=== PATIENT | female | born 1965 | race Caucasian/White ===

== ENCOUNTER 2020-10-15 12:01 | Emergency (ER) | payer BC ==
[2020-10-15] MEDS ORDERED: BABY ASPIRIN 81 MG CHEW PO ONE (12:09)
--- NOTE | 2020-10-15 12:09 | ERPHSYRPT ---
- History of Present Illness Time Seen by Provider: 10/15/20 12:08 Historian: patient Exam Limitations: no limitations Physician History: This is a 55-year-old diabetic patient who has a history of coronary disease, 2 myocardial infarction's in the past, elevated cholesterol and continues to currently smoke cigarettes and presents with onset of chest pain that is central in location described as a dull ache with radiation to her back and bilateral shoulders. Patient states that she is under a lot of stress over the last several weeks. Patient was in her car in the parking lot waiting to be seen at the [facility] because of bilateral earaches. It is while she was waiting in the car that she developed the chest pain. This occurred just prior to evaluation in the emergency department. In the last week she had noticed an intermittent bleeding from both ear canals. She has had history of recurrent bilateral otitis media in the past. 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 Timing/Duration: today Activities at Onset: emotional stress (Patient is under a lot of stress at this time), rest Quality: aching, dullness Location: substernal, central Chest Pain Radiation: arm (Bilateral shoulders), back Severity of Pain-Max: mild Severity of Pain-Current: mild Modifying Factors: Improves With: nothing Prior Chest Pain/Cardiac Workup: heart attack Nitro Today/Relief: no nitro taken today Aspirin Treatment Today: 81 mg x 1, provided at home Allergies/Adverse Reactions: Penicillins Allergy (Verified 10/15/20 12:11) Home Medications: Hydrochlorothiazide 25 mg PO DAILY 01/15/15 [History] Metoprolol Succinate 50 mg [Toprol Xl 50 MG] 50 mg PO DAILY 01/15/15 [History] Lisinopril 10 mg [Zestril 10 MG] 10 mg PO DAILY 10/15/20 [History] Metformin HCl 500 mg [Glucophage 500 MG] 500 mg PO BIDWM 10/15/20 [History] Paroxetine HCl 10 mg PO DAILY 10/15/20 [History] Rosuvastatin Calcium 20 mg PO DAILY 10/15/20 [History] Hx Tetanus, Diphtheria Vaccination/Date Given: (unknown) Hx Influenza Vaccination/Date Given: No Travel Risk - International Travel Have you traveled outside of the country in past 3 weeks: No - Coronavirus Screening Are you exhibiting any of the following symptoms?: No Close contact with a COVID-19 positive Pt in past 14-21 Days: No - Review of Systems Constitutional: No Symptoms Eyes: No Symptoms Ears, Nose, & Throat: Ear Pain (Bilateral), Ear Discharge (Lateral) Respiratory: No Symptoms Cardiac: Chest Pain Abdominal/Gastrointestinal: No Symptoms Genitourinary Symptoms: No Symptoms Musculoskeletal: No Symptoms Skin: No Symptoms Neurological: No Symptoms, Sensory Changes Psychological: No Symptoms Endocrine: No Symptoms Hematologic/Lymphatic: No Symptoms Immunological/Allergic: No Symptoms All Other Systems: Reviewed and Negative - Past Medical History Pertinent Past Medical History: Yes Cardiac History: High Cholesterol, Hypertension - Past Surgical History Past Surgical History: Yes Female Surgical History: Hysterectomy, Tubal Ligation Other Surgical History: tonsils, ablasion - Social History Smoking Status: Current every day smoker Exposure to second hand smoke: Yes Drug Use: none Patient Lives Alone: No - Nursing Vital Signs Nursing Vital Signs: Initial Vital Signs Pulse Rate 65 10/15/20 12:02 Pain Scale Pain Intensity 4 - Physical Exam General Appearance: no apparent distress, alert, anxiety Eye Exam: PERRL/EOMI, eyes nml inspection Ears, Nose, Throat Exam: moist mucous membranes, other (Bilateral ear canals are red as are the bilateral tympanic membranes. No evidence of bilateral tympanic membrane perforation.) Neck Exam: normal inspection, non-tender, supple, full range of motion Respiratory Exam: normal breath sounds, chest tenderness, lungs clear, airway intact, No respiratory distress Cardiovascular Exam: regular rate/rhythm, normal heart sounds, normal peripheral pulses Gastrointestinal/Abdomen Exam: soft, normal bowel sounds, No tenderness Pelvic Exam: not done Rectal Exam: not done Back Exam: normal inspection, normal range of motion, No CVA tenderness, No vertebral tenderness Extremity Exam: normal inspection, normal range of motion, pelvis stable Neurologic Exam: alert, oriented x 3, cooperative, 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 There is no comparison EKG available.) Ordered Tests: Active Orders 24 hr Category Date Time Status EKG-ER Only STAT Care 10/15/20 12:09 Active IV Insertion STAT Care 10/15/20 12:09 Active CHEST 1 VIEW (PORTABLE) Stat Exams 10/15/20 12:09 Taken CBC W DIFF Stat Lab 10/15/20 12:21 Completed CMP Stat Lab 10/15/20 12:21 Completed D-DIMER QUANTITATIVE Stat Lab 10/15/20 12:21 Completed NT PRO BNP Stat Lab 10/15/20 12:21 Completed PROTIME WITH INR Stat Lab 10/15/20 12:21 Completed TROPONIN Q3H Lab 10/15/20 12:21 Completed TROPONIN Q3H Lab 10/15/20 15:22 Completed TROPONIN Q3H Lab 10/15/20 18:15 Ordered TROPONIN Q3H Lab 10/15/20 21:15 Ordered TROPONIN Q3H Lab 10/16/20 00:15 Ordered Medication Summary Discontinued Medications Generic Name Dose Route Start Last Admin Trade Name Lamonteq PRN Reason Stop Dose Admin Aspirin 324 mg 10/15/20 12:09 10/15/20 12:25 Baby Aspirin 81 Mg Chew PO 10/15/20 12:10 243 mg STAT ONE Administration Ceftriaxone Sodium/Dextrose 1 g in 50 mls @ 100 mls/hr 10/15/20 12:29 10/15/20 13:40 Rocephin 1 Gm-D5w 50 Ml Bag IV 10/15/20 12:58 Infused STAT STA Infusion Ceftriaxone Sodium/Dextrose Confirm 10/15/20 12:35 Rocephin 1 Gm-D5w 50 Ml Bag Administered 10/15/20 12:36 Dose 1 g in 50 mls @ ud IV .STK-MED ONE Morphine Sulfate 2 mg 10/15/20 12:29 10/15/20 12:37 Morphine Sulfate 2 Mg Inj IV 10/15/20 12:30 2 mg STAT ONE Administration Morphine Sulfate Confirm 10/15/20 12:35 Morphine Sulfate 2 Mg Inj Administered 10/15/20 12:36 Dose 2 mg .ROUTE .STK-MED ONE Ondansetron HCl 4 mg 10/15/20 12:29 10/15/20 12:37 Zofran 4 Mg/2 Ml Vial IV 10/15/20 12:30 4 mg STAT ONE Administration Ondansetron HCl Confirm 10/15/20 12:34 Zofran 4 Mg/2 Ml Vial Administered 10/15/20 12:35 Dose 4 mg .ROUTE .STK-MED ONE Lab/Rad Data: Laboratory Result Diagrams 10/15/20 12:21 10/15/20 12:21 Laboratory Results 10/15/20 10/15/20 10/15/20 Range/Units 15:22 12:21 12:21 WBC (4.0-10.5) K/mm3 RBC (4.1-5.4) M/mm3 Hgb (12.0-16.0) gm/dl Hct (35-47) % MCV (78-100) fl MCH (26-32) pg MCHC (32-36) g/dl RDW (11.5-14.0) % Plt Count (150-450) K/mm3 MPV (7.5-11.0) fl Gran % (36.0-66.0) % Eos # (Auto) (0-0.5) Absolute Lymphs (auto) (1.0-4.6) Absolute Monos (auto) (0.0-1.3) Lymphocytes % (24.0-44.0) % Monocytes % (0.0-12.0) % Eosinophils % (0.00-5.0) % Basophils % (0.0-0.4) % Absolute Granulocytes (1.4-6.9) Basophils # (0-0.4) PT 12.1 (9.95-12.35) SECONDS INR 1.07 (0.8-3.0) D-Dimer 452 (215-500) ng/mL Sodium (137-145) mmol/L Potassium (3.5-5.1) mmol/L Chloride (98-107) mmol/L Carbon Dioxide (22-30) mmol/L Anion Gap (5-15) MEQ/L BUN (7-17) mg/dL Creatinine (0.52-1.04) mg/dL Estimated GFR ML/MIN Glucose (74-106) mg/dL Calcium (8.4-10.2) mg/dL Total Bilirubin (0.2-1.3) mg/dL AST (14-36) U/L ALT (0-35) U/L Alkaline Phosphatase (38-126) U/L Troponin I < 0.012 < 0.012 (0.000-0.034) ng/mL NT-Pro-B Natriuret Pep (0-900) pg/mL Serum Total Protein (6.3-8.2) g/dL Albumin (3.5-5.0) g/dL 10/15/20 10/15/20 Range/Units 12:21 12:21 WBC 10.8 H (4.0-10.5) K/mm3 RBC 5.06 (4.1-5.4) M/mm3 Hgb 15.1 (12.0-16.0) gm/dl Hct 46.3 (35-47) % MCV 91.5 (78-100) fl MCH 29.8 (26-32) pg MCHC 32.6 (32-36) g/dl RDW 13.6 (11.5-14.0) % Plt Count 263 (150-450) K/mm3 MPV 11.6 H (7.5-11.0) fl Gran % 44.0 (36.0-66.0) % Eos # (Auto) 0.18 (0-0.5) Absolute Lymphs (auto) 4.86 H (1.0-4.6) Absolute Monos (auto) 1.01 (0.0-1.3) Lymphocytes % 44.9 H (24.0-44.0) % Monocytes % 9.3 (0.0-12.0) % Eosinophils % 1.7 (0.00-5.0) % Basophils % 0.1 (0.0-0.4) % Absolute Granulocytes 4.76 (1.4-6.9) Basophils # 0.01 (0-0.4) PT (9.95-12.35) SECONDS INR (0.8-3.0) D-Dimer (215-500) ng/mL Sodium 138 (137-145) mmol/L Potassium 3.6 (3.5-5.1) mmol/L Chloride 102 (98-107) mmol/L Carbon Dioxide 26 (22-30) mmol/L Anion Gap 14.4 (5-15) MEQ/L BUN 11 (7-17) mg/dL Creatinine 0.79 (0.52-1.04) mg/dL Estimated GFR > 60.0 ML/MIN Glucose 83 (74-106) mg/dL Calcium 10.0 (8.4-10.2) mg/dL Total Bilirubin 0.30 (0.2-1.3) mg/dL AST 31 (14-36) U/L ALT 32 (0-35) U/L Alkaline Phosphatase 82 (38-126) U/L Troponin I (0.000-0.034) ng/mL NT-Pro-B Natriuret Pep 179 (0-900) pg/mL Serum Total Protein 8.0 (6.3-8.2) g/dL Albumin 4.7 (3.5-5.0) g/dL - Progress Progress: improved, re-examined Air Movement: good Progress Note: 10/15/20 12:58 Chest x-ray shows no acute cardiopulmonary process Blood Culture(s) Obtained: No Antibiotics given: Yes Counseled pt/family regarding: lab results, diagnosis, need for follow-up, rad results - Departure Departure Disposition: Home Clinical Impression: Bilateral otitis media, Chest pain Condition: Stable Critical Care Time: No Referrals: DELORES CAMPO [Primary Care Provider] - Additional Instructions: Drink plenty of fluids. Take your medication as prescribed. Follow-up with your primary care physician for persistent symptoms. Prescriptions: Azithromycin 250 mg [Zithromax 250 MG TABLET] 250 mg PO ZPACK #6 tablet
[2020-10-15 12:22] LABS: Absolute Neutrophil Ct (ANC) 4.76 (1.4-6.9); BASOPHIL % 0.1 % (0.0-0.4); Basophil (Absolute #) 0.01 (0-0.4); Eosinophil % 1.7 % (0.00-5.0); Eosinophil (Absolute #) 0.18 (0-0.5); Hematocrit 46.3 % (35-47); Hemoglobin 15.1 gm/dl (12.0-16.0); Lymphocyte (Absolute #) 4.86 (1.0-4.6); Lymphocytes % 44.9 % (24.0-44.0); Mean Cell Volume 91.5 fl (78-100); Mean Corpuscular Hemoglobin 29.8 pg (26-32); Mean Corpuscular Hgb Concent. 32.6 g/dl (32-36); Mean Platelet Volume 11.6 fl (7.5-11.0); Monocyte (Absolute #) 1.01 (0.0-1.3); Monocytes % 9.3 % (0.0-12.0); Platelet Count 263 K/mm3 (150-450); Red Blood Count 5.06 M/mm3 (4.1-5.4); Red Cell Distribution Width 13.6 % (11.5-14.0); White Blood Count 10.8 K/mm3 (4.0-10.5)
[2020-10-15 12:28] LABS: INR 1.07 (0.8-3.0); PROTIME 12.1 SECONDS (9.95-12.35)
[2020-10-15] MEDS ORDERED: Zofran 4 MG/2 ML VIAL IV ONE (12:29)
[2020-10-15] MEDS ORDERED: MORPHINE SULFATE 2 MG INJ IV ONE (12:29)
[2020-10-15] MEDS ORDERED: ROCEPHIN 1 Gm-D5w 50 ml Bag** 1 G/50 ML IVPB IV STA (12:29)
[2020-10-15] MEDS ORDERED: Zofran 4 MG/2 ML VIAL ONE (12:34)
[2020-10-15] MEDS ORDERED: ROCEPHIN 1 Gm-D5w 50 ml Bag** 1 G/50 ML IVPB IV ONE (12:35)
[2020-10-15] MEDS ORDERED: MORPHINE SULFATE 2 MG INJ ONE (12:35)
[2020-10-15 12:42] LABS: ALBUMIN 4.7 g/dL (3.5-5.0); ALKALINE PHOSPHATASE 82 U/L (38-126); ANION GAP 14.4 MEQ/L (5-15); BLOOD UREA NITROGEN 11 mg/dL (7-17); CHLORIDE 102 mmol/L (98-107); Carbon Dioxide 26 mmol/L (22-30); Creatinine 1 0.79 mg/dL (0.52-1.04); EST GLOMERULAR FILTRATION RATE > 60.0 ML/MIN; Glucose 83 mg/dL (74-106); NT PRO BNP 179 pg/mL (0-900); Potassium 3.6 mmol/L (3.5-5.1); SGOT/AST 31 U/L (14-36); SGPT/ALT 32 U/L (0-35); SODIUM 138 mmol/L (137-145)
[2020-10-15 16:08] VITALS: BP 123/72; PULSE 52; O2SAT 95
--- NOTE | 2020-10-15 18:30 | XRAY ---
Indication: Chest pain. Comparison: None Portable apical lordotic chest demonstrates normal heart and lungs. Bony thorax intact.
== END 2020-10-15 16:12 | disposition home or self-care (01) ==
LOC: ED 12:01
DX: H66.93 Otitis media, unspecified, bilateral (principal); R07.89 Other chest pain; I10 Essential (primary) hypertension; E78.00 Pure hypercholesterolemia, unspecified; Z79.899 Other long term (current) drug therapy
CPT/HCPCS: 36000; 36415; 71045; 80053; 83880; 84484; 85025; 85379; 85610; 93005; 96365; 96374; 96375; 99285; J0696; J2270; J2405; A9270-GY

== ENCOUNTER 2021-01-17 09:43 | Emergency (ER) | payer BC ==
[2021-01-17 09:56] VITALS: BP 153/75; PULSE 60; O2SAT 100
[2021-01-17] MEDS ORDERED: TORAdol 30 mg Injection IM ONE (10:03)
[2021-01-17] MEDS ORDERED: TORAdol 30 mg Injection ONE (10:15)
--- NOTE | 2021-01-17 10:35 | XRAY ---
Indication: Pain after hugging. Comparison: October 15, 2020. Portable chest again demonstrates normal heart, lungs, bony thorax.
--- NOTE | 2021-01-17 10:38 | XRAY ---
Indication: Pain after hugging. Comparison: None 2 view left ribs obtained. No bony, articular, or soft tissue abnormalities.
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
== END 2021-01-17 11:14 | disposition home or self-care (01) ==
LOC: ED 09:43
DX: R07.81 Pleurodynia (principal); X50.0XXA Overexertion from strenuous movement or load, initial encounter; X50.9XXA Other and unspecified overexertion or strenuous movements or postures, initial encounter; Y92.89 Other specified places as the place of occurrence of the external cause; Y99.9 Unspecified external cause status
CPT/HCPCS: 71045; 71100; 96372; 99284; J1885

== ENCOUNTER 2023-03-24 09:55 | Observation (INO) | payer BC ==
[2023-03-24] MEDS ORDERED: MORPHINE SULFATE 4 MG INJ IV ONE ×2 (10:16→13:03)
[2023-03-24] MEDS ORDERED: Zofran 4 MG/2 ML VIAL IV ONE (10:16)
[2023-03-24] MEDS ORDERED: Zofran 4 MG/2 ML VIAL ONE (10:24)
[2023-03-24] MEDS ORDERED: MORPHINE SULFATE 4 MG INJ ONE ×2 (10:24→13:05)
[2023-03-24 10:56] LABS: Absolute Neutrophil Ct (ANC) 4.56 x10^3/uL (1.4-6.9); BASOPHIL % 0.4 % (0.0-0.4); Basophil (Absolute #) 0.04 x10^3/uL (0-0.4); Eosinophil % 3.1 % (0.00-5.0); Eosinophil (Absolute #) 0.29 x10^3/uL (0-0.5); Hematocrit 40.2 % (35-47); Hemoglobin 13.8 g/dL (12.0-16.0); IMMATURE GRAN # 0.03 x10^3u/L (0.00-0.03); IMMATURE GRAN % 0.3 % (0.00-0.4); Lymphocyte (Absolute #) 3.61 x10^3/uL (1.0-4.6); Lymphocytes % 38.2 % (24.0-44.0); Mean Cell Volume 92.4 fL (78-100); Mean Corpuscular Hemoglobin 31.7 pg (26-32); Mean Corpuscular Hgb Concent. 34.3 g/dL (32-36); Mean Platelet Volume 11.9 fL (7.5-11.0); Monocyte (Absolute #) 0.91 x10^3/uL (0.0-1.3); Monocytes % 9.6 % (0.0-12.0); Neutrophil % 48.4 % (36.0-66.0); Platelet Count 209 x10^3/uL (150-450); Red Blood Count 4.35 x10^6/uL (4.1-5.4); Red Cell Distribution Width 12.9 % (11.5-14.0); White Blood Count 9.4 x10^3/uL (4.0-10.5)
[2023-03-24 11:36] LABS: ALBUMIN 4.4 g/dL (3.5-5.0); ALKALINE PHOSPHATASE 57 U/L (38-126); ANION GAP 17.8 MEQ/L (5-15); BLOOD UREA NITROGEN 10 mg/dL (7-17); CHLORIDE 106 mmol/L (98-107); Calcium 9.5 mg/dL (8.4-10.2); Carbon Dioxide 19 mmol/L (22-30); Creatinine 1 0.66 mg/dL (0.52-1.04); EST GLOMERULAR FILTRATION RATE > 60.0 ML/MIN; Glucose 100 mg/dL (74-106); Potassium 3.6 mmol/L (3.5-5.1); SGOT/AST 38 U/L (14-36); SGPT/ALT 26 U/L (0-35); SODIUM 140 mmol/L (137-145); Total Protein 7.7 g/dL (6.3-8.2)
--- NOTE | 2023-03-24 11:46 | ERPHSYRPT ---
- History of Present Illness Time Seen by Provider: 03/24/23 10:15 Source: patient Exam Limitations: no limitations Patient Subjective Stated Complaint: severe pain and bruising to right leg Triage Nursing Assessment: Patient reports to ER with complaints of severe pain and bruising to right lower extremity. Patient reports that she had a heart c atheterization on Saturday03/20/[address] Yin at [facility]. Patient reports that pain, swelling and bruising have significantly increased every day. Patient rating pain 9/10 at this time and is tearful and moaning. Pulse present to right lower extremity. Bruise dark purple in color. Patient describes pain as constant and "tight". Patient denies chest pain and shortness of breath at this time. Physician History: 57 years old female with multiple medical problems including hypertension, hyperlipidemia, diabetes mellitus, anxiety with cardiac cath done 3 days ago presented to the ER with chief complaint of increasing pain in the right groin with bruising spreading around and noted some swelling. Patient reports moderate to severe sharp pain, called her rouge sifter and was recommended to be evaluated in the ER. Reports worsening pain with movements and palpation. Denies any chest pain palpitations or shortness of breath. Not on any blood th inners. Allergies/Adverse Reactions: Penicillins Allergy (Verified 03/24/23 10:04) Home Medications: Metoprolol Succinate 50 mg [Toprol Xl 50 MG] 50 mg PO DAILY 01/15/15 [History] hydroCHLOROthiazide [Hydrochlorothiazide] 25 mg PO DAILY 01/15/15 [History] Lisinopril 10 mg [Zestril 10 MG] 4 tab PO BID 10/15/20 [History] Metformin HCl 500 mg [Glucophage 500 MG] 500 mg PO BIDWM 10/15/20 [History] PARoxetine HCL [Paroxetine HCl] 3 tab PO DAILY 10/15/20 [History] Rosuvastatin Calcium 20 mg PO DAILY 10/15/20 [History] Amlodipine Besylate [Norvasc] 2.5 mg PO DAILY 03/24/23 [History] Aspirin EC 81 mg [Ecotrin 81 mg] 81 mg PO DAILY 03/24/23 [History] Celecoxib 100 mg [celeBREX 100 MG] 100 mg PO BID 03/24/23 [History] Hydroxyzine HCl 25 mg [Atarax 25 mg] 25 mg PO TID 03/24/23 [History] Magnesium Oxide 400 mg [Mag-Ox 400] 1 tab PO DAILY 03/24/23 [History] Meloxicam 7.5 mg PO DAILY 03/24/23 [History] Nitroglycerin 0.4 mg Tablet [Nitrostat 0.4 MG Tablet] 1 tab SL UD 03/24/23 [History] Hx Tetanus, Diphtheria Vaccination/Date Given: No Hx Influenza Vaccination/Date Given: No Hx Pneumococcal Vaccination/Date Given: No Immunizations Up to Date: Yes Travel Risk - International Travel Have you traveled outside of the country in past 3 weeks: No - Coronavirus Screening Are you exhibiting any of the following symptoms?: No Close contact with a COVID-19 positive Pt in past 14-21 Days: No - Vaccine Status Have you recieved a Covid-19 vaccination: No - Review of Systems Constitutional: No Symptoms Ears, Nose, & Throat: No Symptoms Respiratory: No Symptoms Cardiac: No Symptoms Abdominal/Gastrointestinal: No Symptoms Genitourinary Symptoms: No Symptoms Skin: No Symptoms Neurological: No Symptoms Endocrine: No Symptoms Immunological/Allergic: No Symptoms - Past Medical History Pertinent Past Medical History: Yes Neurological History: Peripheral Neuropathy ENT History: No Pertinent History Cardiac History: Angina, High Cholesterol, Hypertension Respiratory History: No Pertinent History Endocrine Medical History: Diabetes Type II Musculoskeletal History: No Pertinent History GI Medical History: No Pertinent History History: No Pertinent History Psycho-Social History: Anxiety, Depression Female Reproductive Disorders: No Pertinent History - Past Surgical History Past Surgical History: Yes Neuro Surgical History: No Pertinent History Cardiac: Cardiac Catheterization Respiratory: No Pertinent History Gastrointestinal: No Pertinent History Genitourinary: No Pertinent History Musculoskeletal: No Pertinent History Female Surgical History: Hysterectomy, Tubal Ligation Other Surgical History: heart cath on 03/21/23. tonsils, ablasion - Social History Smoking Status: Current every day smoker How long have you smoked: years Exposure to second hand smoke: Yes Drug Use: marijuana Patient Lives Alone: No - Nursing Vital Signs Nursing Vital Signs: Initial Vital Signs Temperature 100.0 F 03/24/23 09:56 Pulse Rate 81 03/24/23 09:56 Respiratory Rate 18 03/24/23 09:56 Blood Pressure 149/98 03/24/23 09:56 O2 Sat by Pulse Oximetry 100 03/24/23 09:56 Pain Scale Pain Intensity 9 - Physical Exam General Appearance: no apparent distress, alert Eye Exam: PERRL/EOMI Ears, Nose, Throat Exam: normal ENT inspection Neck Exam: normal inspection, supple, full range of motion Respiratory Exam: normal breath sounds, lungs clear Cardiovascular Exam: regular rate/rhythm, normal heart sounds Gastrointestinal/Abdomen Exam: soft, normal bowel sounds, No tenderness Pelvic Exam: other (Right groin 5 x 3 cm area of swelling, firm consistency. Diffuse bruising involving the upper half of thigh. Tenderness in the groin. Distal pulses well palpable. No thrill in the groin.) Back Exam: normal inspection, normal range of motion Extremity Exam: normal inspection Neurologic Exam: alert, oriented x 3, cooperative, No depressed mood/affect (Anxious) Skin Exam: normal color SpO2 Interpretation: normal SpO2: 99 O2 Delivery: Room Air Ordered Tests: Active Orders 24 hr Category Date Time Status Cath [Catheter-[facility] Peterson] STAT Care 03/24/23 11:24 Active VENOUS UNILAT/LIMITED EXTREMIT [US] Stat Exams 03/24/23 10:17 Taken CBC W DIFF Stat Lab 03/24/23 10:45 Completed CMP Stat Lab 03/24/23 10:45 Completed Transfer Order Routine Transfer 03/24/23 Ordered Medication Summary Discontinued Medications Generic Name Dose Route Start Last Admin Trade Name Malaika PRN Reason Stop Dose Admin Morphine Sulfate 4 mg 03/24/23 10:16 03/24/23 10:29 Morphine Sulfate 4 Mg/Ml Injection IV 03/24/23 10:17 4 mg STAT ONE Administration Morphine Sulfate Confirm 03/24/23 10:24 Morphine Sulfate 4 Mg/Ml Injection Administered 03/24/23 10:25 Dose 4 mg .ROUTE .STK-MED ONE Morphine Sulfate Confirm 03/24/23 13:05 Morphine Sulfate 4 Mg/Ml Injection Administered 03/24/23 13:06 Dose 4 mg .ROUTE .STK-MED ONE Ondansetron HCl 4 mg 03/24/23 10:16 03/24/23 10:28 Ondansetron Hcl 4 Mg/2 Ml Vial IV 03/24/23 10:17 4 mg STAT ONE Administration Ondansetron HCl Confirm 03/24/23 10:24 Ondansetron Hcl 4 Mg/2 Ml Vial Administered 03/24/23 10:25 Dose 4 mg .ROUTE .K-MED ONE Lab/Rad Data: Laboratory Result Diagrams 03/24/23 10:45 03/24/23 10:45 Laboratory Results 03/24/23 03/24/23 Range/Units 10:45 10:45 WBC 9.4 (4.0-10.5) x10^3/uL RBC 4.35 (4.1-5.4) x10^6/uL Hgb 13.8 (12.0-16.0) g/dL Hct 40.2 (35-47) % MCV 92.4 (78-100) fL MCH 31.7 (26-32) pg MCHC 34.3 (32-36) g/dL RDW 12.9 (11.5-14.0) % Plt Count 209 (150-450) x10^3/uL MPV 11.9 H (7.5-11.0) fL Gran % 48.4 (36.0-66.0) % Immature Gran % (Auto) 0.3 (0.00-0.4) % Nucleat RBC Rel Count 0.0 (0.00-0.1) % Eos # (Auto) 0.29 (0-0.5) x10^3/uL Immature Gran # (Auto) 0.03 (0.00-0.03) x10^3u/L Absolute Lymphs (auto) 3.61 (1.0-4.6) x10^3/uL Absolute Monos (auto) 0.91 (0.0-1.3) x10^3/uL Absolute Nucleated RBC 0.00 (0.00-0.01) x10^3u/L Lymphocytes % 38.2 (24.0-44.0) % Monocytes % 9.6 (0.0-12.0) % Eosinophils % 3.1 (0.00-5.0) % Basophils % 0.4 (0.0-0.4) % Absolute Granulocytes 4.56 (1.4-6.9) x10^3/uL Basophils # 0.04 (0-0.4) x10^3/uL Sodium 140 (137-145) mmol/L Potassium 3.6 (3.5-5.1) mmol/L Chloride 106 (98-107) mmol/L Carbon Dioxide 19 L (22-30) mmol/L Anion Gap 17.8 H (5-15) MEQ/L BUN 10 (7-17) mg/dL Creatinine 0.66 (0.52-1.04) mg/dL Estimated GFR > 60.0 ML/MIN Glucose 100 (74-106) mg/dL Calcium 9.5 (8.4-10.2) mg/dL Total Bilirubin 0.60 (0.2-1.3) mg/dL AST 38 H (14-36) U/L ALT 26 (0-35) U/L Alkaline Phosphatase 57 (38-126) U/L Serum Total Protein 7.7 (6.3-8.2) g/dL Albumin 4.4 (3.5-5.0) g/dL - Progress Progress: improved, re-examined Progress Note: 03/24/23 11:46 57 years old female with multiple medical problems including hypertension, hyperlipidemia, diabetes mellitus, anxiety with cardiac cath done 3 days ago presented to the ER with chief complaint of increasing pain in the right groin with bruising spreading around and noted some swelling. Patient reports moderate to severe sharp pain, called her rouge sifter and was recommended to be evaluated in the ER. Reports worsening pain with movements and palpation. Denies any chest pain palpitations or shortness of breath. Not on any blood thinners. Patient has a hematoma in the right groin almost 5x 3 cm firm consistency. No thrill. Intact distal neurovascular. Has superficial bruising. No tenderness. No swelling in the upper thigh. Mild localized increased temperature only in the area of hematoma. She is given symptomatic treatment for pain and feeling much better on reevaluation. I have obtained ultrasound which did not show any pseudoaneurysm but does have hematoma7.7 x3.3cm per preliminary report. We will call patient's primary cardiology group. 03/24/23 13:[address] Holt cardiology [facility], recommended marking the area and serial H&H check every 6 hours x4 and if stable patient can do outpatient follow-up. Discussed with Dr. Vasquez, reviewed history, work-up and cardiology recommendations, agreed with admission and will follow H&H. We will hold off on aspirin. Discussed with Billy: Other Will see patient in: hospital (observation) Counseled pt/family regarding: lab results, diagnosis, need for follow-up, rad results Medical Desision Making - Independent Historian Additional History obtained from: Relative/friend - Discussion of managment Care discussed with:: specialist (Dr. Holt at [address] sifter, Dr. Vasquez at [address] [facility] hospitalist) Reviewed:: Test results, Need for additional workup Agreed on:: Treatment plan, place in obs Will see patient: in hospital - Diagnostic Testing Diagnostic test were ordered, analyzed, and reviewed by me: Yes Radiological Interpretation: Reviewed by me - Risk of complications The pt has a high risk of morbidity or mortality based on: Decision regarding hospitilization or escalation of hosp level of care - Departure Departure Disposition: Observation Clinical Impression: Hematoma of groin Condition: Stable Critical Care Time: No Referrals: NIKI GUZMAN MD [Primary Care Provider] - Follow up/PCP as directed
[2023-03-24] MEDS ORDERED: Zofran 4 MG/2 ML VIAL IV PRN (14:11)
[2023-03-24] MEDS ORDERED: TYLENOL 325 MG PO PRN (14:11)
[2023-03-24] MEDS ORDERED: MORPHINE SULFATE 4 MG INJ IV PRN (14:11)
--- NOTE | 2023-03-24 14:27 | PCM.HP ---
History of Present Illness - Chief Complaint Chief Complaint: groin hematoma Date: 03/24/23 History of Present Illness: is a 57 year old female with a pmhx of DM, HLD, HTN, angina, neuropathy, anxiety, depression, with a cardiac cath done 03/21/23 that presented to ED 03/24/23 with complaints of progressively worsening right groin pain with edema and ecchymosis from the right groin to mid anterior and lateral thigh since cardiac cath. Patient states her pain is sharp in characteristic with ambulation and position changes as aggravating factor. She states pain is somewhat relieved with pain medication. In ER vitals are unremarkable. On exam there is noted warmth and firmness to the area. Pre-cohen ultrasound reports did not show any pseudoaneurysm but does have hematoma7.7 x3.3cm. Laboratory interpretation unremarkable, of note Hgb stable at 13.8. - Review of Systems Constitutional: No Symptoms (groin pain with edema and ecchymosis from the right groin to mid anterior and lateral thigh) Eyes: No Symptoms Ears, Nose, & Throat: No Symptoms Respiratory: No Symptoms Cardiac: No Symptoms Abdominal/Gastrointestinal: No Symptoms Genitourinary Symptoms: No Symptoms Musculoskeletal: No Symptoms Skin: Other Neurological: No Symptoms Psychological: No Symptoms Endocrine: No Symptoms Medications & Allergies Home Medications: Home Medication List Metoprolol Succinate 50 mg [Toprol Xl 50 MG] 50 mg PO DAILY 01/15/15 [History Confirmed 03/24/23] hydroCHLOROthiazide [Hydrochlorothiazide] 25 mg PO DAILY 01/15/15 [History Confirmed 03/24/23] Lisinopril 10 mg [Zestril 10 MG] 4 tab PO BID 10/15/20 [History Confirmed 03/24/23] Metformin HCl 500 mg [Glucophage 500 MG] 500 mg PO BIDWM 10/15/20 [History Confirmed 03/24/23] PARoxetine HCL [Paroxetine HCl] 3 tab PO DAILY 10/15/20 [History Confirmed 03/24/23] Rosuvastatin Calcium 20 mg PO DAILY 10/15/20 [History Confirmed 03/24/23] Amlodipine Besylate [Norvasc] 2.5 mg PO DAILY 03/24/23 [History Confirmed 03/24/23] Aspirin EC 81 mg [Ecotrin 81 mg] 81 mg PO DAILY 03/24/23 [History Confirmed 03/24/23] Celecoxib 100 mg [celeBREX 100 MG] 100 mg PO BID 03/24/23 [History Confirmed 03/24/23] Hydroxyzine HCl 25 mg [Atarax 25 mg] 25 mg PO TID 03/24/23 [History Confirmed 03/24/23] Magnesium Oxide 400 mg [Mag-Ox 400] 1 tab PO DAILY 03/24/23 [History Confirmed 03/24/23] Meloxicam 7.5 mg PO DAILY 03/24/23 [History Confirmed 03/24/23] Nitroglycerin 0.4 mg Tablet [Nitrostat 0.4 MG Tablet] 1 tab SL UD 03/24/23 [History Confirmed 03/24/23] Allergies/Adverse Reactions: Allergies Allergy/AdvReac Type Severity Reaction Status Date / Time Penicillins Allergy Verified 03/24/23 10:04 - Past Medical History Past Medical History: Yes Neurological History: Peripheral Neuropathy ENT History: No Pertinent History Cardiac History: Angina, High Cholesterol, Hypertension Respiratory History: No Pertinent History Endocrine Medical History: Diabetes Type II Musculoskelatal History: No Pertinent History GI Medical History: No Pertinent History History: No Pertinent History Pyscho-Social History: Anxiety, Depression Reproductive Disorders: No Pertinent History - Past Surgical History Past Surgical History: Yes Neuro Surgical History: No Pertinent History Cardiac History: Cardiac Catheterization Respiratory Surgery: No Pertinent History GI Surgical History: No Pertinent History Genitourinary Surgical Hx: No Pertinent History Musculskeletal Surgical Hx: No Pertinent History Female Surgical History: Hysterectomy, Tubal Ligation Other Surgical History: heart cath on 03/21/23. tonsils, ablasion - Social History Smoking Status: Current every day smoker How long have you smoked: years Exposure to second hand smoke: Yes Alcohol: Rarely Drug Use: marijuana - Physical Exam Vital Signs: Vital Signs - 24 hr Temp Pulse Resp BP BP Pulse Ox 03/24/23 13:27 99 03/24/23 11:00 66 152/89 99 03/24/23 10:07 149/98 100 03/24/23 09:56 100.0 F 81 18 149/98 100 General Appearance: moderate distress Neurologic Exam: alert, oriented x 3 Eye Exam: PERRL/EOMI Respiratory Exam: normal breath sounds, lungs clear Cardiovascular Exam: regular rate/rhythm Gastrointestinal/Abdomen Exam: soft, normal bowel sounds Skin Exam: ecchymosis (groin pain with edema and ecchymosis from the right groin to mid anterior and lateral thigh) Results - Labs Lab/Micro Results: Lab Results-Last 24 Hours 03/24/23 03/24/23 Range/Units 10:45 10:45 WBC 9.4 (4.0-10.5) x10^3/uL RBC 4.35 (4.1-5.4) x10^6/uL Hgb 13.8 (12.0-16.0) g/dL Hct 40.2 (35-47) % MCV 92.4 (78-100) fL MCH 31.7 (26-32) pg MCHC 34.3 (32-36) g/dL RDW 12.9 (11.5-14.0) % Plt Count 209 (150-450) x10^3/uL MPV 11.9 H (7.5-11.0) fL Gran % 48.4 (36.0-66.0) % Immature Gran % (Auto) 0.3 (0.00-0.4) % Nucleat RBC Rel Count 0.0 (0.00-0.1) % Eos # (Auto) 0.29 (0-0.5) x10^3/uL Immature Gran # (Auto) 0.03 (0.00-0.03) x10^3u/L Absolute Lymphs (auto) 3.61 (1.0-4.6) x10^3/uL Absolute Monos (auto) 0.91 (0.0-1.3) x10^3/uL Absolute Nucleated RBC 0.00 (0.00-0.01) x10^3u/L Lymphocytes % 38.2 (24.0-44.0) % Monocytes % 9.6 (0.0-12.0) % Eosinophils % 3.1 (0.00-5.0) % Basophils % 0.4 (0.0-0.4) % Absolute Granulocytes 4.56 (1.4-6.9) x10^3/uL Basophils # 0.04 (0-0.4) x10^3/uL Sodium 140 (137-145) mmol/L Potassium 3.6 (3.5-5.1) mmol/L Chloride 106 (98-107) mmol/L Carbon Dioxide 19 L (22-30) mmol/L Anion Gap 17.8 H (5-15) MEQ/L BUN 10 (7-17) mg/dL Creatinine 0.66 (0.52-1.04) mg/dL Estimated GFR > 60.0 ML/MIN Glucose 100 (74-106) mg/dL Calcium 9.5 (8.4-10.2) mg/dL Total Bilirubin 0.60 (0.2-1.3) mg/dL AST 38 H (14-36) U/L ALT 26 (0-35) U/L Alkaline Phosphatase 57 (38-126) U/L Serum Total Protein 7.7 (6.3-8.2) g/dL Albumin 4.4 (3.5-5.0) g/dL - Radiology Impressions Radiology Exams & Impressions: Radiology Procedures Category Date Time Status VENOUS UNILAT/LIMITED EXTREMIT [US] Stat Exams 03/24/23 10:17 Taken Assessment/Plan (1) Hematoma of groin Current Visit: Yes Status: Acute Assessment & Plan: -H&H Q6 hours -D/P checks -Pain management -Hold ASA Code(s): S30.1XXA - CONTUSION OF ABDOMINAL WALL, INITIAL ENCOUNTER (2) Diabetes Current Visit: Yes Status: Chronic Assessment & Plan: -Accuchecks/ continue home meds Code(s): E11.9 - TYPE 2 DIABETES MELLITUS WITHOUT COMPLICATIONS (3) Hypertension Current Visit: Yes Status: Chronic Assessment & Plan: -Stable, continue amlodipine, lisinopril, metoprolol Code(s): I10 - ESSENTIAL (PRIMARY) HYPERTENSION (4) Hyperlipidemia Current Visit: Yes Status: Chronic Assessment & Plan: -Continue home med Simvastatin Code(s): E78.5 - HYPERLIPIDEMIA, UNSPECIFIED (5) Anxiety with depression Current Visit: Yes Status: Chronic Assessment & Plan: -Continue home meds atarax and paxil Code(s): F41.8 - OTHER SPECIFIED ANXIETY DISORDERS Telemedicine Encounter - Telemedicine Encounter Telemedicine Encounter: The entirety of this encounter was performed via Telemedicine"
[2023-03-24] MEDS ORDERED: Nitrostat 0.4 MG Tablet SL PRN (14:45)
[2023-03-24] MEDS ORDERED: NORCO 5/325 MG PO PRN (14:52)
[2023-03-24] MEDS ORDERED: Nicoderm CQ 21 MG TOP SCH (15:00)
[2023-03-24] MEDS: ATARAX 25 MG PO SCH ×2 (16:06→22:27)
[2023-03-24 16:59] LABS: Hematocrit 37.3 % (35-47); Hemoglobin 12.6 g/dL (12.0-16.0)
[2023-03-24] MEDS: Glucophage 500 MG PO SCH (17:13)
--- NOTE | 2023-03-24 21:07 | XRAY ---
Indication: Right groin pain and swelling following heart catheterization March 21, 2023. Two-dimensional sonogram and color Doppler imaging of the major venous vessels of the right leg performed. Comparison: None No thrombus seen in the examined deep venous vessels of the right leg including greater saphenous vein. Veins demonstrate normal compressibility. Venous waveforms are normal with and without augmentation. Targeted ultrasound right groin demonstrates 7.7 x 3.3 cm heterogeneous hematoma without active hemorrhage. Impression: Right leg negative for DVT. Right groin hematoma. Comment: Preliminary report was given.
[2023-03-24] MEDS: Zestril 20 MG PO SCH (22:26)
[2023-03-24 23:12] LABS: Hematocrit 39.9 % (35-47)
[2023-03-25 05:14] LABS: Hematocrit 40.7 % (35-47); Hemoglobin 13.4 g/dL (12.0-16.0)
[2023-03-25 06:13] LABS: ALBUMIN 3.7 g/dL (3.5-5.0); ALKALINE PHOSPHATASE 54 U/L (38-126); ANION GAP 12.1 MEQ/L (5-15); BLOOD UREA NITROGEN 9 mg/dL (7-17); CHLORIDE 106 mmol/L (98-107); Calcium 8.9 mg/dL (8.4-10.2); Carbon Dioxide 26 mmol/L (22-30); Creatinine 1 0.71 mg/dL (0.52-1.04); EST GLOMERULAR FILTRATION RATE > 60.0 ML/MIN; Glucose 104 mg/dL (74-106); Potassium 3.9 mmol/L (3.5-5.1); SGOT/AST 39 U/L (14-36); SGPT/ALT 26 U/L (0-35); SODIUM 141 mmol/L (137-145); Total Protein 6.7 g/dL (6.3-8.2)
[2023-03-25 07:38] VITALS: RESP 16
[2023-03-25] MEDS: Glucophage 500 MG PO SCH (07:44)
[2023-03-25] MEDS: Zestril 20 MG PO SCH (09:40)
[2023-03-25] MEDS: ATARAX 25 MG PO SCH (09:40)
[2023-03-25] MEDS ORDERED: Paxil 20 MG PO SCH (10:00)
[2023-03-25] MEDS ORDERED: NORVASC 5 MG PO SCH (10:00)
[2023-03-25] MEDS ORDERED: NON-FORMULARY ITEM (Paroxetine Hcl [Paroxetine Hcl] 10 MG Tablet) PO SCH (10:00)
[2023-03-25] MEDS ORDERED: ZOCOR 20MG PO SCH (10:00)
[2023-03-25] MEDS ORDERED: MAG-OX 400 PO SCH (10:00)
[2023-03-25] MEDS ORDERED: NON-FORMULARY ITEM (Amlodipine Besylate [Norvasc] 2.5 MG Tablet) PO SCH (10:00)
[2023-03-25] MEDS ORDERED: PROTONIX 40 MG IV IV SCH (10:00)
[2023-03-25] MEDS ORDERED: NON-FORMULARY ITEM (Rosuvastatin Calcium [Rosuvastatin Calcium] 20 MG Tablet) PO SCH (10:00)
[2023-03-25] MEDS ORDERED: hydroDIURIL 25 MG PO SCH (10:00)
[2023-03-25] MEDS ORDERED: Toprol Xl 50 MG PO SCH (10:00)
--- NOTE | 2023-03-25 11:06 | PCM.DS ---
Discharge Summary Date of Admission: 03/24/23 14:06 Date of Discharge: 03/25/23 1105 Admitting Physician: UVALDO SHANKAR MD Primary Care Provider: NIKI GUZMAN MD Allergies Allergies Penicillins Allergy (Verified 03/24/23 10:04) Hospital Summary - Hospital Course Hospital Course: is a 57 year old female with a pmhx of DM, HLD, HTN, angina, neuropathy, anxiety, depression, with a cardiac cath done 03/21/23 that presented to ED 03/24/23 with complaints of progressively worsening right groin pain with edema and ecchymosis from the right groin to mid anterior and lateral thigh since cardiac cath. She was having increased pain that was sharp in characteristic with ambulation and position changes as aggravating factor. She stated pain is somewhat relieved with pain medication. She is feeling much better today. Bruising and pain have improved. Hgb is stable at 13.4 today. Venous duplex negative for thrombus or active hemorrhage. She denies CP, SOB, Abd. pain, N/V/D. - Vitals & Intake/Output Vital Signs: Vital Signs Temperature 97.6 F 03/25/23 07:36 Pulse Rate 70 03/25/23 07:36 Respiratory Rate 16 03/25/23 07:36 Blood Pressure 141/69 03/25/23 07:36 O2 Sat by Pulse Oximetry 97 03/25/23 07:36 Intake & Output: Intake & Output 03/22/23 03/23/23 03/24/23 03/25/23 11:59 11:59 11:59 11:59 Intake Total 1100 Output Total 200 Balance -200 1100 Weight 72.575 kg 72.575 kg - Lab Result Diagrams: 03/25/23 04:43 03/25/23 04:43 Lab Results-Last 24 Hrs: Lab Results-Last 24 Hours 03/24/23 03/24/23 03/24/23 Range/Units 10:45 10:45 10:45 WBC 9.4 (4.0-10.5) x10^3/uL RBC 4.35 (4.1-5.4) x10^6/uL Hgb 13.8 (12.0-16.0) g/dL Hct 40.2 (35-47) % MCV 92.4 (78-100) fL MCH 31.7 (26-32) pg MCHC 34.3 (32-36) g/dL RDW 12.9 (11.5-14.0) % Plt Count 209 (150-450) x10^3/uL MPV 11.9 H (7.5-11.0) fL Gran % 48.4 (36.0-66.0) % Immature Gran % (Auto) 0.3 (0.00-0.4) % Nucleat RBC Rel Count 0.0 (0.00-0.1) % Eos # (Auto) 0.29 (0-0.5) x10^3/uL Immature Gran # (Auto) 0.03 (0.00-0.03) x10^3u/L Absolute Lymphs (auto) 3.61 (1.0-4.6) x10^3/uL Absolute Monos (auto) 0.91 (0.0-1.3) x10^3/uL Absolute Nucleated RBC 0.00 (0.00-0.01) x10^3u/L Lymphocytes % 38.2 (24.0-44.0) % Monocytes % 9.6 (0.0-12.0) % Eosinophils % 3.1 (0.00-5.0) % Basophils % 0.4 (0.0-0.4) % Absolute Granulocytes 4.56 (1.4-6.9) x10^3/uL Basophils # 0.04 (0-0.4) x10^3/uL Sodium 140 (137-145) mmol/L Potassium 3.6 (3.5-5.1) mmol/L Chloride 106 (98-107) mmol/L Carbon Dioxide 19 L (22-30) mmol/L Anion Gap 17.8 H (5-15) MEQ/L BUN 10 (7-17) mg/dL Creatinine 0.66 (0.52-1.04) mg/dL Estimated GFR > 60.0 ML/MIN Glucose 100 (74-106) mg/dL POC Glucometer (74 to 106) mg/dL Hemoglobin A1c 5.98 (4.5-6.0) % Calcium 9.5 (8.4-10.2) mg/dL Total Bilirubin 0.60 (0.2-1.3) mg/dL AST 38 H (14-36) U/L ALT 26 (0-35) U/L Alkaline Phosphatase 57 (38-126) U/L Serum Total Protein 7.7 (6.3-8.2) g/dL Albumin 4.4 (3.5-5.0) g/dL 03/24/23 03/24/23 03/24/23 Range/Units 16:57 17:00 20:49 WBC (4.0-10.5) x10^3/uL RBC (4.1-5.4) x10^6/uL Hgb 12.6 (12.0-16.0) g/dL Hct 37.3 (35-47) % MCV (78-100) fL MCH (26-32) pg MCHC (32-36) g/dL RDW (11.5-14.0) % Plt Count (150-450) x10^3/uL MPV (7.5-11.0) fL Gran % (36.0-66.0) % Immature Gran % (Auto) (0.00-0.4) % Nucleat RBC Rel Count (0.00-0.1) % Eos # (Auto) (0-0.5) x10^3/uL Immature Gran # (Auto) (0.00-0.03) x10^3u/L Absolute Lymphs (auto) (1.0-4.6) x10^3/uL Absolute Monos (auto) (0.0-1.3) x10^3/uL Absolute Nucleated RBC (0.00-0.01) x10^3u/L Lymphocytes % (24.0-44.0) % Monocytes % (0.0-12.0) % Eosinophils % (0.00-5.0) % Basophils % (0.0-0.4) % Absolute Granulocytes (1.4-6.9) x10^3/uL Basophils # (0-0.4) x10^3/uL Sodium (137-145) mmol/L Potassium (3.5-5.1) mmol/L Chloride (98-107) mmol/L Carbon Dioxide (22-30) mmol/L Anion Gap (5-15) MEQ/L BUN (7-17) mg/dL Creatinine (0.52-1.04) mg/dL Estimated GFR ML/MIN Glucose (74-106) mg/dL POC Glucometer 117 H 110 H (74 to 106) mg/dL Hemoglobin A1c (4.5-6.0) % Calcium (8.4-10.2) mg/dL Total Bilirubin (0.2-1.3) mg/dL AST (14-36) U/L ALT (0-35) U/L Alkaline Phosphatase (38-126) U/L Serum Total Protein (6.3-8.2) g/dL Albumin (3.5-5.0) g/dL 03/24/23 03/25/23 03/25/23 Range/Units 23:10 04:43 04:43 WBC (4.0-10.5) x10^3/uL RBC (4.1-5.4) x10^6/uL Hgb 13.0 13.4 (12.0-16.0) g/dL Hct 39.9 40.7 (35-47) % MCV (78-100) fL MCH (26-32) pg MCHC (32-36) g/dL RDW (11.5-14.0) % Plt Count (150-450) x10^3/uL MPV (7.5-11.0) fL Gran % (36.0-66.0) % Immature Gran % (Auto) (0.00-0.4) % Nucleat RBC Rel Count (0.00-0.1) % Eos # (Auto) (0-0.5) x10^3/uL Immature Gran # (Auto) (0.00-0.03) x10^3u/L Absolute Lymphs (auto) (1.0-4.6) x10^3/uL Absolute Monos (auto) (0.0-1.3) x10^3/uL Absolute Nucleated RBC (0.00-0.01) x10^3u/L Lymphocytes % (24.0-44.0) % Monocytes % (0.0-12.0) % Eosinophils % (0.00-5.0) % Basophils % (0.0-0.4) % Absolute Granulocytes (1.4-6.9) x10^3/uL Basophils # (0-0.4) x10^3/uL Sodium 141 (137-145) mmol/L Potassium 3.9 (3.5-5.1) mmol/L Chloride 106 (98-107) mmol/L Carbon Dioxide 26 (22-30) mmol/L Anion Gap 12.1 (5-15) MEQ/L BUN 9 (7-17) mg/dL Creatinine 0.71 (0.52-1.04) mg/dL Estimated GFR > 60.0 ML/MIN Glucose 104 (74-106) mg/dL POC Glucometer (74 to 106) mg/dL Hemoglobin A1c (4.5-6.0) % Calcium 8.9 (8.4-10.2) mg/dL Total Bilirubin 0.60 (0.2-1.3) mg/dL AST 39 H (14-36) U/L ALT 26 (0-35) U/L Alkaline Phosphatase 54 (38-126) U/L Serum Total Protein 6.7 (6.3-8.2) g/dL Albumin 3.7 (3.5-5.0) g/dL 03/25/23 Range/Units 07:27 WBC (4.0-10.5) x10^3/uL RBC (4.1-5.4) x10^6/uL Hgb (12.0-16.0) g/dL Hct (35-47) % MCV (78-100) fL MCH (26-32) pg MCHC (32-36) g/dL RDW (11.5-14.0) % Plt Count (150-450) x10^3/uL MPV (7.5-11.0) fL Gran % (36.0-66.0) % Immature Gran % (Auto) (0.00-0.4) % Nucleat RBC Rel Count (0.00-0.1) % Eos # (Auto) (0-0.5) x10^3/uL Immature Gran # (Auto) (0.00-0.03) x10^3u/L Absolute Lymphs (auto) (1.0-4.6) x10^3/uL Absolute Monos (auto) (0.0-1.3) x10^3/uL Absolute Nucleated RBC (0.00-0.01) x10^3u/L Lymphocytes % (24.0-44.0) % Monocytes % (0.0-12.0) % Eosinophils % (0.00-5.0) % Basophils % (0.0-0.4) % Absolute Granulocytes (1.4-6.9) x10^3/uL Basophils # (0-0.4) x10^3/uL Sodium (137-145) mmol/L Potassium (3.5-5.1) mmol/L Chloride (98-107) mmol/L Carbon Dioxide (22-30) mmol/L Anion Gap (5-15) MEQ/L BUN (7-17) mg/dL Creatinine (0.52-1.04) mg/dL Estimated GFR ML/MIN Glucose (74-106) mg/dL POC Glucometer 97 (74 to 106) mg/dL Hemoglobin A1c (4.5-6.0) % Calcium (8.4-10.2) mg/dL Total Bilirubin (0.2-1.3) mg/dL AST (14-36) U/L ALT (0-35) U/L Alkaline Phosphatase (38-126) U/L Serum Total Protein (6.3-8.2) g/dL Albumin (3.5-5.0) g/dL Micro Results-Entire Visit: Accuchecks Date 03/25/23 Date 03/24/23 Time 07:35 Time 17:43 - Radiology Exams Ordered Rad Exams-Entire Visit: Radiology Procedures Category Date Time Status VENOUS UNILAT/LIMITED EXTREMIT [US] Stat Exams 03/24/23 10:17 Completed - Procedures and Test Procedures and Tests throughout Hospitalization: Therapy Orders & Screens 03/24/23 14:46 Smoking Cessation Education ONCE Comment: Diagnosis: groin hematoma Smoking Status: Current every day smoker How long have you smoked: years Have you smoked in the past 12 months: Yes Approximately how many cigarettes per day: 20 Do you dip or chew tobacco: No Discharge Exam General Appearance: no apparent distress, alert Neurologic Exam: alert, oriented x 3, cooperative, normal mood/affect, nml cerebellar function, sensation nml, No motor deficits Eye Exam: PERRL, EOMI, eyes nml inspection Ears, Nose, Throat Exam: normal ENT inspection, pharynx normal, moist mucous membranes Neck Exam: normal inspection, non-tender, supple, full range of motion Respiratory Exam: normal breath sounds, lungs clear, No respiratory distress Cardiovascular Exam: regular rate/rhythm, normal heart sounds Gastrointestinal/Abdomen Exam: soft, No tenderness, No mass Pelvic Exam: deferred Rectal Exam: deferred Back Exam: normal inspection, normal range of motion, No CVA tenderness, No vertebral tenderness Extremity Exam: normal inspection, normal range of motion, tenderness (right uppper groin region, + bruising) Skin Exam: normal color, warm, dry Final Diagnosis/Problem List - Final Discharge Diagnosis/Problem (1) Hematoma of groin Current Visit: Yes Status: Acute Code(s): S30.1XXA - CONTUSION OF ABDOMINAL WALL, INITIAL ENCOUNTER (2) Anxiety with depression Current Visit: Yes Status: Chronic Code(s): F41.8 - OTHER SPECIFIED ANXIETY DISORDERS (3) Diabetes Current Visit: Yes Status: Chronic Code(s): E11.9 - TYPE 2 DIABETES MELLITUS WITHOUT COMPLICATIONS (4) Hyperlipidemia Current Visit: Yes Status: Chronic Code(s): E78.5 - HYPERLIPIDEMIA, UNSPECIFIED (5) Hypertension Current Visit: Yes Status: Chronic Code(s): I10 - ESSENTIAL (PRIMARY) HYPERTENSION - Discharge Disposition: Home, Self-Care Condition: Stable Prescriptions: Continue Metoprolol Succinate 50 mg [Toprol Xl 50 MG] 50 mg PO DAILY hydroCHLOROthiazide [Hydrochlorothiazide] 25 mg PO DAILY Rosuvastatin Calcium 20 mg PO QHS Lisinopril 10 mg [Zestril 10 MG] 40 mg PO BID PARoxetine HCL [Paroxetine HCl] 30 mg PO DAILY Metformin HCl 500 mg [Glucophage 500 MG] 500 mg PO BIDWM Nitroglycerin 0.4 mg Tablet [Nitrostat 0.4 MG Tablet] 1 tab SL UD Celecoxib 100 mg [celeBREX 100 MG] 100 mg PO BID Amlodipine Besylate [Norvasc] 2.5 mg PO DAILY Magnesium Oxide 400 mg [Mag-Ox 400] 400 mg PO DAILY Hydroxyzine HCl 25 mg [Atarax 25 mg] 25 mg PO TID PRN Meloxicam 7.5 mg PO DAILY PRN PRN PRN Reason: Pain Aspirin EC 81 mg [Ecotrin 81 mg] 81 mg PO DAILY Fluticasone Propionate [Flonase NASAL] 1 spray IH DAILY Gabapentin [Neurontin ] 200 mg PO TID Diclofenac Sodium 75 mg PO BID Fenofibrate,Micronized 145 mg* [Tricor 145 MG] 145 mg PO DAILY Multivitamin 1 each PO DAILY Additional Instructions: F/U with cardiology as scheduled and PCP within 1 week. Follow up with: ROMA MORAN NP [NON-STAFF PHY W/O PRIVILEGES] - 04/01/23 10:00 am NIKI GUZMAN MD [Primary Care Provider] -
[2023-03-25 11:16] LABS: Hematocrit 40.8 % (35-47); Hemoglobin 13.3 g/dL (12.0-16.0)
[2023-03-25 11:58] VITALS: BP 143/65; PULSE 63; TEMP 97.9; O2SAT 96
== END 2023-03-25 12:18 | disposition home or self-care (01) ==
LOC: ED 09:55 → MED SURG 14:06
PROVIDERS: ADMIT Internal Medicine; ATTEND Internal Medicine
DX: S30.1XXA Contusion of abdominal wall, initial encounter (principal); F41.8 Other specified anxiety disorders; E11.9 Type 2 diabetes mellitus without complications; E78.5 Hyperlipidemia, unspecified; I10 Essential (primary) hypertension; R60.0 Localized edema; Z79.899 Other long term (current) drug therapy; Z20.828 Contact with and (suspected) exposure to other viral communicable diseases; Z72.0 Tobacco use
CPT/HCPCS: 36000; 36415; 51702; 80053; 82947; 83036; 85014; 85018; 85025; 93971; 96374; 96375; 96376; 99285; G0378; J2270; J2405; A9270-GY